=== PATIENT | male | born 1965 | race Caucasian/White ===

== ENCOUNTER 2020-02-08 16:41 | Outpatient (CLI) | payer BC, SELFPAY ==
--- NOTE | ~2020-02-08 | MR_ITS ---
EXAMINATION: MR lumbar spine wo con DATE: 02/08/2020 17:15 INDICATION: Low back pain TECHNIQUE: Magnetic resonance imaging (MRI) of the lumbar spine was performed without intravenous con trast. Sequences included sagittal T2-weighted FSE, sagittal T2-weighted FS FSE, sagittal T1-weighted FSE, and axial T2-weighted FSE. COMPARISON: 01/17/2018 FINDINGS: Again seen is a focal kyphosis centered at a chronic L2 burst fracture with unchanged 60% anterior ve rtebral body height loss and 6-7 mm retropulsion which results in moderate to severe central canal st enosis with minimal CSF signal surrounding the centrally clustered nerve roots. Unchanged 1-2 mm retr olisthesis L3 on L4 and 3 mm retrolisthesis L4 on L5. Severe disc height loss at L1-L2 and mildly dec reased disc height at L2-L3 and L4-L5. T1 hyperintense hemangiomas at L4 and L5. Marrow signal is oth erwise normal. The conus medullaris terminates at L1. There is normal signal in the caudal spinal cor d. Paravertebral soft tissues are unremarkable. The following disc levels are specifically discussed: T12-L1: The disc does not extend beyond the endplate margin. There is mild left facet joint osteoarth ritis. There is no neural foraminal stenosis. There is no central canal stenosis. L1-L2: The disc does not extend beyond the endplate margin. There is no facet joint osteoarthritis. T here is no neural foraminal stenosis. There is no central canal stenosis at the level of the disc spa ce however as noted above there is moderate to severe stenosis immediately called to the level of the disc space resulting from retropulsion from the L2 burst fracture. L2-L3: Disc is bulging. There is no facet joint osteoarthritis. There is mild bilateral neural forami nal stenosis. There is mild central canal stenosis. L3-L4: Disc is bulging. There is mild bilateral facet joint osteoarthritis. There is mild bilateral n eural foraminal stenosis. There is mild central canal stenosis. L4-L5: Disc is bulging with annular fissure. There is mild bilateral facet joint osteoarthritis. Ther e is mild bilateral neural foraminal stenosis. There is mild central canal stenosis. L5-S1: Disc is bulging. There is mild right facet joint osteoarthritis. There is mild bilateral neura l foraminal stenosis. There is mild central canal stenosis. IMPRESSION: 1. Unchanged moderate to severe central canal stenosis resulting from a chronic L2 burst fracture wit h 6-7 mm retropulsion. 2. Unchanged mild lumbar spondylosis. Reviewed, dictated and finalized at location A. IMPRESSION: 1. Unchanged moderate to severe central canal stenosis resulting from a chronic L2 burst fracture with 6-7 mm retropulsion. 2. Unchanged mild lumbar spondylosis.
--- NOTE | ~2020-02-08 | XR_ITS ---
XR hip LT min 2V 02/08/2020 17:31 Indication: Left hip pain Procedure: 3 views left hip Comparison: No prior studies for comparison. Findings: There is mild osteoarthritis of the left hip. No fracture, subluxation or dislocation. No s ignificant soft tissue abnormality. No radiopaque foreign bodies. Impression: 1: Mild osteoarthritis of the left hip. Reviewed, dictated and finalized at location A. Impression: 1: Mild osteoarthritis of the left hip.
== END 2020-02-08 16:42 | disposition home or self-care (01) ==
LOC: ANHIMG 16:42
PROVIDERS: PCP Internal Medicine; Visit Provider Nurse Practitioner Family
DX: M47.896 Other spondylosis, lumbar region (principal); M16.12 Unilateral primary osteoarthritis, left hip
CPT/HCPCS: 72148; 73502

== ENCOUNTER → 2021-02-18 18:02 | Outpatient (CLI) | payer BC, SELFPAY ==
--- NOTE | ~2021-02-18 | XR_ITS ---
EXAMINATION: XR hip LT min 2V DATE: 02/18/2021 18:24 INDICATION: Left hip pain TECHNIQUE: Anteroposterior and frog-leg lateral views of the left hip were obtained. COMPARISON: 02/08/2020. FINDINGS: Alignment is normal. No fracture or suspected avascular necrosis. Mild left hip osteoarthritis. Soft tissues are unremarkable. IMPRESSION: 1. Mild left hip osteoarthritis. Reviewed, dictated and finalized at location A.
--- NOTE | ~2021-02-18 | MR_ITS ---
EXAMINATION: MR lumbar spine wo con DATE: 02/18/2021 19:33 INDICATION: Low back pain. TECHNIQUE: Magnetic resonance imaging (MRI) of the lumbar spine was performed without intravenous con trast. Sequences included sagittal T2-weighted FSE, sagittal T2-weighted FS FSE, sagittal T1-weighted FSE, and axial T2-weighted FSE. COMPARISON: Lumbar spine MRI 02/08/2020, CT 05/20/17 FINDINGS: There is 4 degrees dextrocurvature of lumbar spine. There is a chronic burst fracture of L2 with 3/5 loss of height, retropulsion of bone 7 mm into central spinal canal, and focal kyphosis. Th ere is 3 mm retrolisthesis of L4 on L5. There is severely decreased disc height at L1-L2 with bridgin g endplate osteophytes. There is mildly decreased disc height at L2-L3 and L4-L5. The distal spinal c ord signal intensity is normal. The conus medullaris is at T12-L1. The following disc levels are spec ifically discussed: L1-L2: The disc does not extend beyond the endplate margin. There is no facet joint osteoarthritis. T here is mild left neural foraminal stenosis. There is mild central canal stenosis. L2-L3: The disc is bulging. There is moderate and mild left facet joint osteoarthritis. There is mild bilateral neural foraminal stenosis. There is mild central canal stenosis. L3-L4: The disc is mildly bulging. There is mild bilateral facet joint osteoarthritis. There is mild bilateral neural foraminal stenosis. There is mild central canal stenosis. L4-L5: The disc is bulging and has an annular fissure. There is moderate bilateral facet joint osteoa rthritis. There is mild bilateral neural foraminal stenosis. There is mild central canal stenosis. L5-S1: The disc is bulging. There is moderate right facet joint osteoarthritis. There is mild bilater al neural foraminal stenosis. There is mild central canal stenosis. IMPRESSION: 1. Mild lumbar spondylosis, stable from 02/08/2020. Reviewed, dictated and finalized at location A.
== END ==
PROVIDERS: Visit Provider Nurse Practitioner Family
DX: M47.896 Other spondylosis, lumbar region (principal); M16.12 Unilateral primary osteoarthritis, left hip
CPT/HCPCS: 72148; 73502

== ENCOUNTER 2021-10-29 15:42 | Emergency (ER) | payer BC, SELFPAY ==
--- NOTE | ~2021-10-29 | XR_ITS ---
EXAMINATION: XR finger 3rd RT min 2V DATE: 10/29/2021 16:20 INDICATION: Injury with a thorn at the right third distal interphalangeal joint TECHNIQUE: Dorsal palmar, lateral and 2 oblique views of the right third digit were obtained COMPARISON: None FINDINGS: Bone alignment is normal. No fracture. Joint spaces are normal. No erosions or periosteal reaction. M ild soft tissue swelling at the third distal interphalangeal joint. No radiopaque foreign bodies or s oft tissue gas. Of note, organic foreign bodies can be occult on plain radiographs. IMPRESSION: 1. Negative right third digit radiographs. Reviewed, dictated and finalized at location A. HAND
[2021-10-29 15:49] VITALS: BP 133/84; PULSE 81; RESP 18; TEMP 36.4; O2SAT 98
--- NOTE | 2021-10-29 15:50 | ED.EXTPRO ---
HPI - Extremity Problem General Chief complaint: Extremity Problem,Nontraumatic Stated complaint: Middle Finger Rt Hand Source: patient and RN notes reviewed Mode of arrival: ambulatory History of Present Illness HPI Narrative: This is a 56-year-old male who presented to urgent care with complaints of right middle finger swelling and pain. According to patient back in August he was stuck with a thorn to the the affected finger. Patient notes that he use clean the affected finger and use Neosporin. Today he notes that his finger started swelling was warm to touch for the last 2 days. Patient believes that he did not get all of the thorn. He is able to move the finger no neurovascular deficiencies capillary refill within normal limits pulses are palpable. Related Data Allergies Allergy/AdvReac Type Severity Reaction Status Date / Time No Known Allergies Allergy Verified 10/29/21 15:48 Review of Systems Review of Systems: A 14 organ system Review of Systems was performed and pertinent positives included in the HPI, otherwise remaining ROS is negative. FOR[facility]LY [facility] Past Medical History Medical History Acute torn meniscus of knee Hyperlipidemia L2 vertebral fracture L3 vertebral fracture Surgical History Surgical History History of appendectomy Family History Family History Mother Patient's mother is in good health Father Colon cancer Hypertension Social History Social History Smoking status: Never smoker Alcohol intake: current Exam Narrative: GENERAL: This is a well-nourished, well-developed patient, in no apparent distress. HEAD: normocephalic, atraumatic. EYES: PERRL. Sclera clear/white. Vision is grossly intact. EARS: External ears normal, auditory canals clear and without drainage, TMs normal without perforation. Hearing grossly intact. NOSE: External nose normal with no obvious nasal discharge, nares without redness, no rhinorrhea. THROAT: Mucous membranes moist, posterior pharynx clear. NECK: Neck supple, non-tender without lymphadenopathy, masses or thyromegaly. CARDIOVASCULAR: Regular rate and rhythm without murmurs, gallops, or rubs. RESPIRATORY: Clear to auscultation. Breath sounds equal bilaterally. No wheezes, rales, or rhonchi. GASTROINTESTINAL: Abdomen soft, non-tender, nondistended. Bowel sounds are active. No hepato-splenomegaly, or palpable masses. No guarding. SKIN: warm, intact with no suspicious lesions or rash, good texture and turgor. NEURO: awake, alert, and oriented to person, place and time. There were no obvious focal neurologic abnormalities. Steady gait EXTREMITIES: Limited range of motion to the left middle finger. Slight edema with edema and warm to touch to the affected finger, no calf tenderness. Negative Homans sign bilaterally. BACK: Nontender without deformity or crepitance. No flank tenderness. Course Course Emergency Course: Patient will discharge with doxycycline x7 days [id number] right third digit radiographs. Level of Care: Express Care Visit Vital Signs Vital signs: Vital Signs Temperature 97.5 F L 10/29/21 15:49 Pulse Rate 81 10/29/21 15:49 Respiratory Rate 18 10/29/21 15:49 Blood Pressure 133/84 10/29/21 15:49 Pulse Oximetry 98 10/29/21 15:49 Temperature 97.5 F L 10/29/21 15:49 Pulse Rate 81 10/29/21 15:49 Respiratory Rate 18 10/29/21 15:49 Blood Pressure 133/84 10/29/21 15:49 Pulse Oximetry 98 10/29/21 15:49 MDM - Extremity (Nontraumatic) Differential Diagnosis Differential diagnosis: Likely cellulitis and lower extremity edema Discharge Plan Discharge Clinical Impression: Cellulitis Qualifiers: Site of cellulitis: extremity Site of cellulitis of extremity: finger Laterality: right
== END 2021-10-29 16:24 | disposition home or self-care (01) ==
PROVIDERS: Emergency Provider Nurse Practitioner; PCP Internal Medicine
DX: L03.011 Cellulitis of right finger (principal); E78.5 Hyperlipidemia, unspecified
CPT/HCPCS: 73140; 99213; G0463

== ENCOUNTER 2021-11-12 15:32 | Outpatient (CLI) | payer BC, SELFPAY ==
--- NOTE | ~2021-11-12 | CT_ITS ---
EXAMINATION: CT hand RT wo con DATE: 11/12/2021 15:51 INDICATION: Right hand foreign body. TECHNIQUE: Computed tomography (CT) of the right hand was performed without intravenous contrast. Aut omated exposure control and iterative reconstruction technique were employed. The dose-length product was 594.64 mGy-cm. COMPARISON: Right hand third digit radiographs 10/29/2021 FINDINGS: Bone alignment is normal. No fracture. 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 Other joint spaces are normal. IMPRESSION: 1. No radiopaque foreign body. Reviewed, dictated and finalized at location A. LEMENTAL NURSE
== END 2021-11-12 15:33 | disposition home or self-care (01) ==
LOC: ANHIMG 15:35
PROVIDERS: PCP Internal Medicine; Visit Provider Internal Medicine
DX: M79.5 Residual foreign body in soft tissue (principal)
CPT/HCPCS: 73200

== ENCOUNTER 2022-12-06 01:17 | Day surgery (SDC) | payer BC, SELFPAY ==
[2022-11-22 15:10] VITALS: BMI 23.8
--- NOTE | 2022-12-03 14:46 | PM.HPGS ---
History of Present Illness History of Present Illness Consent: Risks, benefits, and alternatives have been discussed and questions answered. Patient agrees to proceed with procedure. Chief complaint: Abnormal CT scan, family hx colon ca Narrative: Colin Moore is a 57 year old male Who was referred for colon cancer screening. His father had colon cancer. The patient's last colonoscopy was 6 years ago. Apparently he also had a CT scan that was abnormal, we are unable to locate that report. Review of Systems Review of Systems: All systems reviewed & are unremarkable except as noted in HPI and below PMFSH Past Medical History Medical History Acute torn meniscus of knee Hyperlipidemia L2 vertebral fracture L3 vertebral fracture Surgical History Surgical History History of appendectomy History of carpal tunnel surgery Family History Family History Mother Patient's mother is in good health Father Hypertension Melanoma Social History Social History Smoking status: Never smoker Alcohol intake: current Drinks per week: 2 Substance use type: does not use Meds Home Medications and Allergies Home Medications Medication Instructions Recorded Confirmed Type No Home Medications 10/18/22 12/06/22 History Allergies Allergy/AdvReac Type Severity Reaction Status Date / Time No Known Allergies Allergy Verified 12/06/22 10:11 Exam Const: General: alert Orientation/consciousness: patient oriented x3 Resp: Auscultation: clear to auscultation bilaterally Cardio: Rhythm: regular rhythm GI: GI Palp: Yes Soft to palpation and No Tenderness to palpation present (GI) Neuro: General: patient oriented x3 Assessment and Plan Assessment and plan (1) Colon cancer screening: Code(s): Z12.11 - Encounter for screening for malignant neoplasm of colon Status: Acute Assessment and Plan: Colonoscopy with possible biopsy or polypectomy or cautery or injection of substances.
[2022-12-06 10:12] VITALS: BP 102/72; PULSE 77; RESP 16; TEMP 36.2; O2SAT 99
[2022-12-06] MEDS: LACTATED RINGERS 1,000 ML 150 ML IV CONT (10:21)
--- NOTE | 2022-12-06 10:25 | WPDANESEPPF ---
Anes - Initial Pre Proc Eval Procedure: Operation Date: 12/06/22 11:30 Proposed Procedures p Colonoscopy - Keenan Biswas MD Date/Time: 12/06/22 10:25 Surgeon: Keenan Biswas MD Pre Op Diagnosis: Abnormal CT scan, family hx colon ca Patient Data Age: 57 Gender: M Height: 1.88 m Weight: 85.1 kg Last Vital Signs Temp 36.2 C L 12/06/22 10:12 Pulse 77 12/06/22 10:12 Resp 16 12/06/22 10:12 BP 102/72 12/06/22 10:12 Pulse Ox 99 12/06/22 10:12 O2 Del Method Room Air 12/06/22 10:12 Allergies Allergy/AdvReac Type Severity Reaction Status Date / Time No Known Allergies Allergy Verified 12/06/22 10:11 Home Medications Medication Instructions Recorded Confirmed Type No Home Medications 10/18/22 12/06/22 History Patient hx anesthesia problems: none Family hx anesthesia problems: none Results Review: All pre-operative results and documents have been reviewed as part of the pre-operative evaluation. [facility] Past Medical History Medical History (Updated 12/03/22 @ 14:47 by Keenan Biswas MD) Acute torn meniscus of knee Hyperlipidemia L2 vertebral fracture L3 vertebral fracture Surgical History Surgical History History of appendectomy History of carpal tunnel surgery Family History Family History Mother Patient's mother is in good health Father Hypertension Melanoma Social History Social History (Updated 10/18/22 @ 11:51 by Maggi Grace CMA) Smoking status: Never smoker Alcohol intake: current Drinks per week: 2 Substance use type: does not use Anes - Eval Final PreProcedure Day of Procedure 12/06/22 10:25 Patient weight: normal Heart: regular rate and rhythm Lungs: clear to auscultation and normal air movement Airway: Mallampati scale class II Neurological: alert and oriented Last oral intake: >/= 8 hours ASA classification: II Emergent: no Anesthetic plan: proceed Anesthesia type and monitoring: general GIVS Results Review: All pre-operative results and documents have been reviewed as part of the pre-operative evaluation. Informed Consent: The patient's anesthetic plan and its attendant risks and benefits were discussed with the patient/family/POA. Questions were solicited and answers provided to the satisfaction of the patient/family/POA.
[2022-12-06 11:19] VITALS: BP 114/80; PULSE 77; RESP 16; O2SAT 99
[2022-12-06 11:29] VITALS: BP 109/75; PULSE 66; RESP 20; O2SAT 99
[2022-12-06 11:39] VITALS: BP 108/74; PULSE 68; RESP 18; O2SAT 99
== END 2022-12-06 11:48 | disposition home or self-care (01) ==
PROVIDERS: PCP Internal Medicine; Visit Provider Internal Medicine Gastroenterology
PROC: 0DJD8ZZ Inspection of Lower Intestinal Tract, Via Natural or Artificial Opening Endoscopic (ICD-10-PCS; CPT 45378; principal; 2022-12-06 11:30)
DX: Z12.11 Encounter for screening for malignant neoplasm of colon (principal); Z80.0 Family history of malignant neoplasm of digestive organs
CPT/HCPCS: 45378; J2704; J7120